=== PATIENT | female | born 1955 | race Two or more races ===

== ENCOUNTER 2020-10-23 18:57 | Inpatient (IN) | payer OTHER ==
[~2020-10-23] VITALS: Ht 160 cm; Wt 56.7 kg
[2020-10-23] MEDS ORDERED: ONDANSETRON HCL 4 MG/2 ML VIAL IV ONE (21:30)
[2020-10-23] MEDS ORDERED: MORPHINE SULFATE 4 MG/ML SYR/VIAL IV ONE (21:30)
[2020-10-23 22:04] LABS: Basophils # (auto) 0 10 ^3/uL (0-0.2); Basophils % (auto) 0.6 % (0.0-2.0); Eosinophils # (auto) 0 10 ^3/uL (0-0.8); Eosinophils % (auto) 0.1 % (0.0-7.0); Hematocrit 38.2 % (36.0-46.0); Lymphocytes # (auto) 1.2 10 ^3/uL (0.4-5.4); Lymphocytes % (auto) 24.3 % (10.0-50.0); Mean Corpuscular Hemoglobin 33.4 pg (28.0-32.0); Mean Corpuscular Volume 98.3 fL (80.0-100.0); Monocytes # (auto) 0.3 10 ^3/uL (0-1.3); Neutrophils # (auto) 3.3 10 ^3/uL (1.6-8.6); Red Blood Cells 3.89 10^6/uL (4.0-5.20); White Blood Cell 4.8 10^3/uL (4.4-10.8)
[2020-10-23 22:09] LABS: Red Cell Distribution Width 20.7 % (11.8-14.3)
[2020-10-23 22:21] LABS: INR 1.02 (0.9-1.15); Partial Thromboplastin Time 34.6 sec (23.6-33.0)
[2020-10-23 22:24] LABS: Potassium 4.3 mmol/L (3.5-5.1)
[2020-10-23 22:31] LABS: Albumin 4.1 g/dL (3.4-5.0); BUN/Creatinine Ratio 29.8; Bilirubin, Total 0.3 mg/dL (0.2-1.0); Total Protein 8.1 g/dL (6.4-8.2)
[2020-10-24] MEDS ORDERED: HYDROcodone-ACET 5/325MG TAB PO PRN (01:00)
[2020-10-24] MEDS ORDERED: ONDANSETRON HCL 4 MG/2 ML VIAL IV PRN (01:00)
[2020-10-24] MEDS ORDERED: ACETAMINOPHEN 325 MG TAB PO PRN (01:00)
[2020-10-24] MEDS ORDERED: MORPHINE SULFATE 4 MG/ML SYR/VIAL IV PRN (01:00)
[2020-10-24] MEDS ORDERED: PANTOPRAZOLE 40 MG TAB PO SCH (10:00)
[2020-10-24 10:11] VITALS: BP 108/85
== END 2020-10-24 11:38 | disposition left against medical advice (07) | DRG 563 ==
LOC: EDBD 18:57 → ER 19:04 → OVERFLOW 10-24 00:57
PROVIDERS: ADMIT Nurse Practitioner; ATTEND Internal Medicine
DX: S82.841A Displaced bimalleolar fracture of right lower leg, initial encounter for closed fracture (principal); Z53.29 Procedure and treatment not carried out because of patient's decision for other reasons; Z20.822 Contact with and (suspected) exposure to COVID-19; M85.80 Other specified disorders of bone density and structure, unspecified site; X50.1XXA Overexertion from prolonged static or awkward postures, initial encounter; Y93.53 Activity, golf; Y92.9 Unspecified place or not applicable; Y99.9 Unspecified external cause status; Z79.899 Other long term (current) drug therapy; Z85.118 Personal history of other malignant neoplasm of bronchus and lung; Z85.3 Personal history of malignant neoplasm of breast; Z90.13 Acquired absence of bilateral breasts and nipples
CPT/HCPCS: 36415; 71045; 73600; 80053; 85025; 85610; 85730; 87426; G0378